=== PATIENT | male | born 2000 | race Caucasian/White ===

== ENCOUNTER 2023-12-24 18:07 | Emergency (ER) | payer MEDICAID ==
[~2023-12-24] VITALS: Ht 167.6 cm; Wt 68.0 kg
[2023-12-24 18:25] VITALS: BP 118/73; PULSE 64; RESP 15; TEMP 97.6; O2SAT 100
[2023-12-24] MEDS: NACL 0.9% 1,000 ML IV ONE (18:58)
[2023-12-24 18:59] LABS: BASOPHILS % (AUTO) 0.1 % (0.0-2.0); HEMOGLOBIN 15.5 g/dL (12.0-18.0); LYMPHOCYTES # (AUTO) 0.9 K/uL (2.0-11.5); LYMPHOCYTES % (AUTO) 3.9 % (20.5-51.1); MEAN CORPUSCULAR HEMOGLOBIN 29 pg (27-31); MEAN CORPUSCULAR HGB CONC 34 g/dL (33-37); MEAN CORPUSCULAR VOLUME 86.8 fL (80-94); MONOCYTES # (AUTO) 1.1 K/uL (0.8-1.0); NEUTROPHILS # (AUTO) 20.6 K/uL (1.8-7.7); PLATELET COUNT (AUTO) 325 K/uL (140-450); RED CELL DISTRIBUTION WIDTH 13.5 % (11.6-13.7); WHITE BLOOD COUNT (AUTO) 22.7 K/uL (4.8-10.8)
[2023-12-24] MEDS: ONDANSETRON 4 MG/2 ML VIAL IVP ONE (18:59)
--- NOTE | 2023-12-24 19:06 | NUR ---
23M PRESENTS TO ED WITH C/O N/V AND ABD PAIN SINCE THIS MORNING. PT UNABLE TO RECALL AMOUNT OF EPISODES OF VOMITING, REPORTS A ACHING PAIN TO UMBILICUS REGION, NONRADIATING. PT REPORTS TAKING ZOFRAN WITH MILD RELIEF AFTER TAKING MEDICATION. PT DENIES PMH.
--- NOTE | 2023-12-24 19:19 | NUR ---
REPORT GIVEN TO LANG STEPHENSON.
--- NOTE | 2023-12-24 19:23 | NUR ---
family member at bedside, patient is resting peacefully at the moment.
[2023-12-24 19:27] LABS: ANION GAP 12.3 (8-16); CALCIUM 10.3 mg/dL (8.5-10.1); CARBON DIOXIDE 30.1 mmol/L (21-32); CREATININE 0.9 mg/dL (0.6-1.3); POTASSIUM 3.4 mmol/L (3.5-5.1)
[2023-12-24 19:31] LABS: BILIRUBIN,DIRECT 0.2 mg/dL (0.0-0.3); TOTAL BILIRUBIN 0.8 mg/dL (0.0-1.0); TOTAL PROTEIN, SERUM 8.5 g/dL (6.4-8.2)
[2023-12-24] MEDS ORDERED: ONDA-188 SL (19:47)
[2023-12-24 19:53] VITALS: BP 118/73; PULSE 62; RESP 15; TEMP 97.6; O2SAT 100
--- NOTE | 2023-12-24 19:53 | NUR ---
Patient discharged with v/s stable. Written and verbal after care instructions given and explained. Patient alert, oriented and verbalized understanding of instructions. Ambulatory with steady gait. All questions addressed prior to discharge. ID band removed. Patient advised to follow up with PMD. Rx given. Patient educated on indication of medication including possible reaction and side effects. Opportunity to ask questions provided and answered. iv removed Addendum: 12/24/23 at 1957 by [email or web address] "wheel chair assisted to outside of the [employer]"
== END 2023-12-24 19:53 | disposition home or self-care (01) ==
LOC: MED 18:08
DX: R11.2 Nausea with vomiting, unspecified (principal); F12.90 Cannabis use, unspecified, uncomplicated; Z79.899 Other long term (current) drug therapy
CPT/HCPCS: 36415; 80048; 80076; 83690; 85025; 96361; 96374; 99283; J2405; J7030